=== PATIENT | male | born 1985 ===

== ENCOUNTER 2023-11-28 14:16 | Emergency (ER) | payer OTHER, SELFPAY ==
--- NOTE | ~2023-11-28 | XR_ITS ---
EXAMINATION: XR LUMBOSACRAL SPINE CLINICAL INFORMATION: Low back pain status post lifting heavy object. COMPARISON: None available. TECHNIQUE: Three views of the lumbosacral spine. FINDINGS: No evidence of acute compression deformity or subluxation in the lumbar spine. Intervertebral disc heights are maintained. Posterior elements are normal in appearance. SI joints are symmetric. No significant paraspinal soft tissue abnormality. Indeterminate posterior offset of the coccyx with respect to the lower sacrum. XR/XR lumbar spine 2-3V IMPRESSION: 1. No acute compression deformity or traumatic subluxation in the lumbar spine. 2. 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
[2023-11-28 14:20] VITALS: BP 116/73; PULSE 68; RESP 17; TEMP 36.6; O2SAT 98; BMI 24.2
--- NOTE | 2023-11-28 14:20 | ED_ITS ---
HPI - Back Pain/Injury General Chief Complaint: Back Pain/Injury Stated Complaint: back pain Time Seen by Provider: 11/28/23 17:42 Source: patient and RN notes reviewed Mode of arrival: ambulatory Limitations: no limitations History of Present Illness ED Provider: Marah Yang PA-C HPI Narrative: This is a 38-year-old male who presents emergency department with complaints of low back pain since today. 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 This was suddenly pulled forward while he was hanging onto this object causing him to strain his back. He immediately had pain in his back. He states that the pain is constant, and intermittently radiates down the back of his leg. Denies any urinary or bowel retention or incontinence. No saddle anesthesia. Denies history of similar symptoms in the past. No problems with his back in the past. He did not fall to the ground. Did not take any medications prior to his arrival. No other complaints or concerns at this time. MD elicited complaint: back injury Onset (ago): hour(s) Timing: constant Severity: moderate Similar Symptoms Previously: No Quality: aching Location: lumbar spine Radiation: left leg below the knee Exacerbating factors: movement Relieving factors: immobilization Associated symptoms: denies other symptoms Work related injury: Yes Related Data Previous Rx's ?Medication ?Instructions ?Recorded acetaminophen 500 mg tablet 1,000 mg (2 x 500 mg) PO Q8H PRN 11/28/23 (Tylenol Extra Strength) pain #30 tabs cyclobenzaprine 10 mg tablet 10 mg PO TID PRN muscle spasm #14 11/28/23 tabs ibuprofen 600 mg tablet 600 mg PO Q6H PRN pain #30 tabs 11/28/23 lidocaine 5 % topical patch 1 patch topical DAILY #30 ea 11/28/23 (Lidoderm) Allergies Allergy/AdvReac Type Severity Reaction Status Date / Time Penicillins Allergy Unknown Unknown Verified 11/28/23 14:22 Review of Systems Review of Systems: Yes all other systems are reviewed and are negative Constitutional: Constitutional: Reports as per [facility] Social History Social History Advance Directives: No Advance Directives Information Provided: No Physical Exam Vital Signs: Vital Signs: Last Vital Signs Temp 98 F 11/28/23 18:46 Pulse 68 11/28/23 18:46 Resp 17 11/28/23 18:46 BP 116/73 11/28/23 18:46 Pulse Ox 98 11/28/23 18:46 O2 Del Method Room Air 11/28/23 18:46 BMI result Body Mass Index 24.2 Const: General: cooperative, comfortable and no acute distress Orientation/consciousness: patient oriented x3 Limitations: no limitations HEENT: Head: Yes normal to inspection, Yes normocephalic and Yes atraumatic Ears: hearing grossly normal bilaterally General nose exam: Normal external nose present Face and sinus: Yes normal facial exam Mouth: Normal oral and palatal mucosa present, oropharynx normal and moist mucous membranes Throat: Yes posterior oropharynx normal Eyes: General: appearance normal, both eyes and all related structures Eyelids: Yes eyelids normal Conjunctivae: conjunctivae normal Sclerae: sclerae normal Pupils: Equal, round and reactive pupils present EOM: EOMs intact bilaterally Neck: Neck: Yes normal visual inspection, Yes full ROM and Yes no lymphadenopathy Lymphatic: no lymphadenopathy noted Chest: Chest palpation & inspection: normal inspection of the chest Resp: Effort & Inspection: normal respiratory effort and able to speak in complete sentences Auscultation: clear to auscultation bilaterally, no crackles, no rales, no rhonchi and no wheezes Cardio: Rate: regular rate Rhythm: regular rhythm Heart sounds: S1 normal heart sound present and S2 normal heart sound present GI: Inspection: Yes normal to inspection Back/Spine/Pelvis: Other: Tenderness palpation along the midline spine. Tenderness palpation along the lumbar paraspinous muscles. No tenderness palpation along the sacrum. No bony deformity or swelling. No overlying skin changes. He is ambulatory. DTRs are 2+ Skin: General skin exam: no rashes or lesions noted Trauma: no lacerations or abrasions Wounds: no wounds Neuro: General: patient oriented x3 and moves all extremities Cranial nerves: Yes Equal, round and reactive pupils present Extrem: General: Yes normal to inspection Right upper extremity: normal to inspection Left upper extremity: normal to inspection Right lower extremity: normal to inspection Left lower extremity: normal to inspection Course Course Course Narrative: This is a Rapid Medical Examination (RME) performed by Alexis Quevedo PA-C in triage. Full HPI, ROS, assessment and treatment plan per primary provider in the Main ED. 38 yo male presents to the ER for evaluation of middle lower back pain that shoots down the left leg that started 3 hours ago when he was injured at work. Midline tenderness of the upper lumbar spine. steady gait. Plan: xr lumbar spine Medications Administered Discontinued Medications Generic Name Dose Route Start Last Admin Trade Name Slade PRN Reason Stop Dose Admin Ketorolac Tromethamine 30 mg 11/28/23 18:12 11/28/23 18:22 Ketorolac Tromethamine 30 Mg/Ml Vial IM 11/28/23 18:13 30 mg ONCE ONE Administration Medical Decision Making Medical Decision Making [facility] Narrative: this is a 38-year-old male who presents emergency department with complaints of back pain since today. On arrival, he is ambulatory with steady gait. Tenderness palpation along the lumbar spine. Lumbar spine x-rays reveal posterior offset of the coccyx, unclear if this is congenital. He has no tenderness palpation along the coccyx. His pain is along his lumbar midline spine and paraspinous muscles. I discussed radiology findings with my attending physician, Dr. Brown. Given he has no red flag back symptoms on examination, no further workup indicated however advised follow-up with PCP. Patient was medicated with Toradol which provided him with some relief. He does not want to wait for further alleviate of his pain. Discussed return precautions. He understands agrees with plan. Patient stable for discharge. Differential Diagnosis Differential Diagnoses: The differential diagnosis associated with the presentation includes Lumbar sprain, strain, contusion, cauda equina syndrome-unlikely, fracture, disc herniation Admission/Observation Consideration of admission/observation: Escalation of care including admission/observation considered Radiology Impression Discussion of test interpretation with radiology: I have reviewed the radiologist's reading. Radiologist Impression: XR/XR lumbar spine 2-3V IMPRESSION: 1. No acute compression deformity or traumatic subluxation in the lumbar spine. 2. 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 Dictated By: Debbie Choudhury Signed By: <Electronically sig Discharge Plan Discharge Clinical Impression: Strain of lumbar region Patient Disposition: Home, Self-Care Instructions: Muscle Strain (ED), Back Pain (ED), Lower Back Exercises (ED) Additional Instructions: You were seen in the emergency department due to back pain. Your x-rays do not show any broken bones. You do have a mild displacement to your coccyx (tailbone), this may be something that you were born with an unrelated to the injury today. Follow-up with your PCP regarding this. Please rest, ice, alternate between ibuprofen and Tylenol. You may take Flexeril, which is a muscle relaxants as needed for pain and symptoms. Any new or worsening symptoms occur including but not limited to worsening pain, weakness in her lower extremities, numbness or tingling into your groin, problems with urination or having bowel movements, please return for re- evaluation. Prescriptions: New cyclobenzaprine 10 mg tablet 10 mg PO TID PRN (Reason: muscle spasm) Qty: 14 0RF ibuprofen 600 mg tablet 600 mg PO Q6H PRN (Reason: pain) Qty: 30 0RF acetaminophen [Tylenol Extra Strength] 500 mg tablet 1,000 mg PO Q8H PRN (Reason: pain) Qty: 30 0RF lidocaine [Lidoderm] 5 % adhesive patch,medicated 1 patch topical DAILY Qty: 30 0RF Rx Instructions: leave on most painful area for up to 12 hrs Interventions: ED Discharge Assessment Last Done: 11/28/23 18:46 Discharge Date/Time: 11/28/23 18:47 Print Language: Bhutanese
[2023-11-28] MEDS: Ketorolac Tromethamine 30 MG/ML VIAL IM (18:22)
[2023-11-28 18:46] VITALS: BP 116/73; PULSE 68; RESP 17; TEMP 36.6; O2SAT 98
== END 2023-11-28 18:47 | disposition home or self-care (01) ==
PROVIDERS: Emergency Provider Emergency Medicine
DX: S39.012A Strain of muscle, fascia and tendon of lower back, initial encounter (principal); X50.9XXA Other and unspecified overexertion or strenuous movements or postures, initial encounter; Y93.89 Activity, other specified; Y92.9 Unspecified place or not applicable; Y99.0 Civilian activity done for income or pay
CPT/HCPCS: 72100; 96372; 99283; 99284; J1885